=== PATIENT | male | born 1965 | race Caucasian/White ===

== ENCOUNTER 2020-05-18 21:36 | Emergency (ER) | payer BC ==
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
[2020-05-18] MEDS: Ibuprofen 600 MG Tab PO ONE (22:05)
--- NOTE | 2020-05-19 18:40 | CR ---
DATE OF SERVICE: 05/18/2020 CLINICAL DATA: Trauma. PA CHEST AND RIGHT RIBS: No priors. No displaced fractures. Heart size is normal. There is a calcified nodule in the AP window region consistent with prior granulomatous disease. The lungs are otherwise clear. No pneumothorax. No pleural effusions. IMPRESSION: No acute abnormalities. [id number] [facility]
== END 2020-05-18 22:39 | disposition home or self-care (01) ==
LOC: LB.ED 21:36
DX: S20.211A Contusion of right front wall of thorax, initial encounter (principal); I10 Essential (primary) hypertension; Y04.0XXA Assault by unarmed brawl or fight, initial encounter
CPT/HCPCS: 71101; 99283; A0425; A0429; A9270